=== PATIENT | female | born 1960 | race African-American/Black ===

== ENCOUNTER 2017-02-28 22:51 | Emergency (ER) | payer SELFPAY ==
[2017-02-28 23:27] LABS: ADD MAN DIFF? NO
[2017-02-28 23:31] LABS: BASO % 1 % (0-3); EOS # 0.1 x10^3/uL (0.0-0.7); EOS % 2 % (0-3); HEMATOCRIT 37.6 % (36.0-47.0); LYMPH # 2.5 x10^3/uL (1.0-4.8); LYMPH % 41 % (24-48); MEAN CORPUSCULAR HEMOGLOBIN 27 pg (25-35); MEAN CORPUSCULAR HGB CONC 32 g/dL (31-37); MEAN CORPUSCULAR VOLUME 86 fL (79-100); MONO # 0.5 x10^3/uL (0.0-1.1); MONO % 8 % (0-9); NEUT # 2.9 x10^3uL (1.8-7.7); NEUT % 48 % (31-73); PLATELET COUNT 168 x10^3/uL (140-400); RED BLOOD COUNT 4.36 x10^6/uL (3.50-5.40); RED CELL DISTRIBUTION WIDTH 15.1 % (11.5-14.5); WHITE BLOOD COUNT 6.1 x10^3/uL (4.0-11.0)
[2017-02-28] MEDS: IV NORMAL SALINE 1000ML BAG 1,000 ML IV (23:38)
[2017-02-28] MEDS: ONDANSETRON PF 4 MG/2 ML VIAL. IV (23:38)
[2017-02-28 23:50] LABS: ANION GAP 11 (6-14); BLOOD UREA NITROGEN 20 mg/dL (7-20); BUN/CREATININE RATIO 29 (6-20); CALCIUM 8.4 mg/dL (8.5-10.1); CARBON DIOXIDE 24 mmol/L (21-32); CHLORIDE 109 mmol/L (98-107); CREATININE 0.7 mg/dL (0.6-1.0); GLUCOSE 110 mg/dL (70-99); POTASSIUM 3.6 mmol/L (3.5-5.1); SODIUM 144 mmol/L (136-145)
[2017-02-28] MEDS: ACETAMINOPHEN 500 MG TABLET PO (23:50)
[2017-02-28 23:53] LABS: ALBUMIN 3.2 g/dL (3.4-5.0); ALBUMIN/GLOBULIN RATIO 0.8 (1.0-1.7); ALK PHOS 81 U/L (46-116); ALT (SGPT) 13 U/L (14-59); AST (SGOT) 13 U/L (15-37); LIPASE 450 U/L (73-393); TOTAL BILIRUBIN 0.1 mg/dL (0.2-1.0)
== END 2017-03-01 00:30 | disposition home or self-care (01) ==
LOC: ER 03-01 00:30
DX: R11.2 Nausea with vomiting, unspecified (principal); R19.7 Diarrhea, unspecified; F12.10 Cannabis abuse, uncomplicated; Z98.51 Tubal ligation status
CPT/HCPCS: 36415; 80053; 83690; 85025; 96361; 96374; 99284-25; J2405; J7030

== ENCOUNTER 2017-12-23 00:29 | Emergency (ER) | payer SELFPAY ==
[~2017-12-23] VITALS: Ht 162.6 cm; Wt 90.7 kg
[~2017-12-23 00:29] MED LIST: ONDA4TAB10 PO
[2017-12-23 01:53] LABS: BASO % 0 % (0-3); EOS # 0.1 x10^3/uL (0.0-0.7); EOS % 2 % (0-3); HEMATOCRIT 33.9 % (36.0-47.0); HEMOGLOBIN 11.5 g/dL (12.0-15.5); LYMPH # 2.2 x10^3/uL (1.0-4.8); LYMPH % 45 % (24-48); MEAN CORPUSCULAR HEMOGLOBIN 30 pg (25-35); MEAN CORPUSCULAR HGB CONC 34 g/dL (31-37); MEAN CORPUSCULAR VOLUME 87 fL (79-100); MONO # 0.4 x10^3/uL (0.0-1.1); MONO % 9 % (0-9); NEUT # 2.2 x10^3uL (1.8-7.7); NEUT % 44 % (31-73); PLATELET COUNT 166 x10^3/uL (140-400); RED CELL DISTRIBUTION WIDTH 15.1 % (11.5-14.5); WHITE BLOOD COUNT 4.9 x10^3/uL (4.0-11.0)
[2017-12-23 02:12] LABS: CALCIUM 8.8 mg/dL (8.5-10.1); CREATININE 0.7 mg/dL (0.6-1.0); GFR 103.6; POTASSIUM 3.8 mmol/L (3.5-5.1)
[2017-12-23 02:15] VITALS: BP 142/64
[2017-12-23 02:16] LABS: ALBUMIN 2.8 g/dL (3.4-5.0); ALBUMIN/GLOBULIN RATIO 0.9 (1.0-1.7); TOTAL BILIRUBIN 0.1 mg/dL (0.2-1.0)
[2017-12-23] MEDS: ASPIRIN CHEWABLE 81 MG TABLET. PO ONE (02:31)
--- NOTE | 2017-12-23 02:54 | PHYS DOC ---
Past Medical History Past Medical History: Diabetes-Type II, High Cholesterol, Hypertension Past Surgical History: , Tubal ligation Alcohol Use: None Drug Use: None Adult General Chief Complaint Chief Complaint: CHEST PAIN HPI HPI Patient is a 57 year old female is presenting with chest pain. Patient states really fact she's having upper chest even closer to the left shoulder pain and is been constant for 3 days although she does feel some dullness in her chest that does sort of come and go at times at rest it does not get worse with exertion it is not pleuritic he just seems to come at random. She does have shooting pain down both arms as well that has been constant for 3 days now. Addition she states both of her ankles were getting a little swollen and she is worried about that too no shortness of breath no previous cardiac history that she knows of. Currently symptoms are mild Review of Systems Review of Systems Constitutional: Denies fever or chills [] Eyes: Denies change in visual acuity, redness, or eye pain [] HENT: Denies nasal congestion or sore throat [] Cardiovascular: No additional information not addressed in HPI [] GI: Denies abdominal pain, nausea, vomiting, bloody stools or diarrhea [] : Denies dysuria or hematuria [] Neurologic: Denies headache, focal weakness or sensory changes [] Endocrine: Denies polyuria or polydipsia [] All other systems were reviewed and found to be within normal limits, except as documented in this note. Current Medications Current Medications Current Medications Medications (Trade) Dose Ordered Sig/[facility] Start Time Stop Time Status Last Admin Dose Admin Aspirin (Children'S Aspirin) 324 mg 1X ONCE 12/23/17 02:15 12/23/17 02:16 DC 12/23/17 02:31 324 MG Allergies Allergies Allergies Coded Allergies Type Severity Reaction Last Updated Verified No Known Drug Allergies 02/28/17 No Physical Exam Physical Exam Constitutional: Well developed, well nourished, no acute distress, non-toxic appearance. [] HENT: Normocephalic, atraumatic, bilateral external ears normal, oropharynx moist, no oral exudates, nose normal. [] Eyes: PERRLA, EOMI, conjunctiva normal, no discharge. [] Neck: Normal range of motion, no tenderness, supple, no stridor. [] Cardiovascular:Heart rate regular rhythm, no murmur [] Lungs & Thorax: Bilateral breath sounds clear to auscultation []there is reproducible tenderness over the anterior left shoulder and left clavicle area but no erythema or induration was seen Abdomen: Bowel sounds normal, soft, no tenderness, no masses, no pulsatile masses. [] Skin: Warm, dry, no erythema, no rash. [] Back: No tenderness, no CVA tenderness. [] Extremities: s, no cyanosis, no clubbing, ROM intact, trace edema. [] See above otherwise no tenderness elsewhere. Neurologic: Alert and oriented X 3, normal motor function, normal sensory function, no focal deficits noted. [] Psychologic: Affect normal, judgement normal, mood normal. [] Current Patient Data Vital Signs Vital Signs Date Time Temp Pulse Resp B/P (MAP) Pulse Ox O2 Delivery O2 Flow Rate FiO2 12/23/17 00:30 97.7 59 18 128/71 (90) 99 Room Air 97.7 Lab Values Laboratory Tests Test 12/23/17 00:49 White Blood Count 4.9 x10^3/uL (4.0-11.0) Red Blood Count 3.90 x10^6/uL (3.50-5.40) Hemoglobin 11.5 g/dL (12.0-15.5) L Hematocrit 33.9 % (36.0-47.0) L Mean Corpuscular Volume 87 fL (79-100) Mean Corpuscular Hemoglobin 30 pg (25-35) Mean Corpuscular Hemoglobin Concent 34 g/dL (31-37) Red Cell Distribution Width 15.1 % (11.5-14.5) H Platelet Count 166 x10^3/uL (140-400) Neutrophils (%) (Auto) 44 % (31-73) Lymphocytes (%) (Auto) 45 % (24-48) Monocytes (%) (Auto) 9 % (0-9) Eosinophils (%) (Auto) 2 % (0-3) Basophils (%) (Auto) 0 % (0-3) Neutrophils # (Auto) 2.2 x10^3uL (1.8-7.7) Lymphocytes # (Auto) 2.2 x10^3/uL (1.0-4.8) Monocytes # (Auto) 0.4 x10^3/uL (0.0-1.1) Eosinophils # (Auto) 0.1 x10^3/uL (0.0-0.7) Basophils # (Auto) 0.0 x10^3/uL (0.0-0.2) Sodium Level 145 mmol/L (136-145) Potassium Level 3.8 mmol/L (3.5-5.1) Chloride Level 110 mmol/L (98-107) H Carbon Dioxide Level 24 mmol/L (21-32) Anion Gap 11 (6-14) Blood Urea Nitrogen 15 mg/dL (7-20) Creatinine 0.7 mg/dL (0.6-1.0) Estimated GFR (Cockcroft-Gault) 103.6 BUN/Creatinine Ratio 21 (6-20) H Glucose Level 109 mg/dL (70-99) H Calcium Level 8.8 mg/dL (8.5-10.1) Total Bilirubin 0.1 mg/dL (0.2-1.0) L Aspartate Amino Transferase (AST) 12 U/L (15-37) L Alanine Aminotransferase (ALT) 16 U/L (14-59) Alkaline Phosphatase 68 U/L (46-116) Troponin I Quantitative < 0.017 ng/mL (0.000-0.055) Total Protein 6.0 g/dL (6.4-8.2) L Albumin 2.8 g/dL (3.4-5.0) L Albumin/Globulin Ratio 0.9 (1.0-1.7) L Laboratory Tests 12/23/17 00:49 Laboratory Tests 12/23/17 00:49 EKG EKG []EKG shows a normal sinus rhythm with a rate of 59 this is a normal EKG no ST changes were noted interpreted by me the time of encounter. Radiology/Procedures Radiology/Procedures [] Impressions: My interpretation chest x-ray was negative acute no definite pneumonia or pneumothorax was seen. Course & Med Decision Making Course & Med Decision Making Pertinent Labs and Imaging studies reviewed. (See chart for details) H1E0 a 1R2T0 Patient is a heart score of 4. This somewhat atypical story however there are some features that could potentially be atypical chest pain. Patient does have risk factors patient goes to [facility]. does not sound like pe or dissection. i recommended admission for rule out and risk stratification she says she has so much going on she can't stay I talked about the risks and benefits of staying or leaving including the risk of missed coronary artery disease which could ultimately be fatal. She understands this risk she says despite that she still cannot stay she has so much to do she just really want to get some blood test to make sure there is no heart attack I did tell her that we prove that there was no heart attack in the last few days. Overall her chest pain does some fairly atypical but I still recommended that she follow-up with her primary care doctor soon as possible and also given the follow-up phone number for the local mechanic foreman as well. She was instructed to come back to ER anytime should she want to be admitted for stress testing and /or for any new or worsening symptoms. She was of sound mind understood the risks and benefits we talked about she signed out AGAINST MEDICAL ADVICE. Dragon Disclaimer Dragon Disclaimer This electronic medical record was generated, in whole or in part, using a voice recognition dictation system. Departure Departure Impression: Primary Impression: Chest pain Disposition: 01 HOME, SELF-CARE Condition: STABLE Referrals: JUAN RAMON WILSON MD Patient Instructions: Chest Pain (Nonspecific), [id number] Additional Instructions: see your primary doctor or mechanic foreman as soon as possible CM DAVIS MD Dec 23, 2017 02:54
--- NOTE | 2017-12-23 06:13 | EKG ---
[facility] [address] [place] [address] Test Date: 2017-12-23 Test Time: 00:40:39 Pat Name: ROJAS PARSONS Department: Room: Gender: F Paraprofessional Aide: : 1960 Requested By: CM DAVIS Order Number: [id number] Reading MD: Kole Fox Measurements Intervals [place] Rate: 58 P: -2 MT: 172 QRS: 26 QRSD: 76 T: 38 QT: 424 QTc: 424 Interpretive Statements SINUS RHYTHM NORMAL ECG No previous ECG available for comparison Electronically Signed On 12-25-2017 10:29:08 CDT by Kole Fox
--- NOTE | 2017-12-23 08:06 | RAD ---
Single view of the chest. 12/23/2017 2:19 AM Indication: chest pain Comparison: None Findings: There is no focal consolidation. There is no pleural effusion or pneumothorax. The cardiomediastinal silhouette and pulmonary vasculature are within normal limits. No acute osseous abnormalities are seen. Impression: No evidence of acute cardiopulmonary process. Electronically signed by: Sebastian Callejas MD (12/23/2017 8:03 AM) [id number]
== END 2017-12-23 02:45 | disposition home or self-care (01) ==
LOC: ER 00:29
DX: R07.89 Other chest pain (principal); M25.512 Pain in left shoulder; E11.9 Type 2 diabetes mellitus without complications; E78.00 Pure hypercholesterolemia, unspecified; I10 Essential (primary) hypertension; Z98.890 Other specified postprocedural states; Z98.51 Tubal ligation status
CPT/HCPCS: 36415; 71045; 80053; 84484; 85025; 93005; 99285-25

== ENCOUNTER 2019-02-20 00:23 | Emergency (ER) | payer SELFPAY ==
[~2019-02-20] VITALS: Ht 162.6 cm; Wt 95.3 kg
--- NOTE | 2019-02-20 02:11 | PHYS DOC ---
Past Medical History Past Medical History: Diabetes-Type II, High Cholesterol, Hypertension Past Surgical History: , Tubal ligation Alcohol Use: None Drug Use: None Adult General Chief Complaint Chief Complaint: LOWER EXTREMITY SWELLING HPI HPI 58-year-old female presents to the emergency department with complaints of bilateral lower extremity pain 2 days. She has underlying history of diabetes, hypertension. She denies any coronary artery disease history. Patient denies any fever, nausea, vomiting, chest pain, shortness of breath. She's been eating primarily ramen noodles as she does not have groceries. Nothing makes her symptoms worse, nothing makes her symptoms better. Review of Systems Review of Systems Constitutional: Denies fever or chills [] Respiratory: Denies cough or shortness of breath [] Cardiovascular: No additional information not addressed in HPI [] GI: Denies abdominal pain, nausea, vomiting, bloody stools or diarrhea [] Musculoskeletal: Denies back pain or joint pain, + edema Neurologic: Denies headache, focal weakness or sensory changes [] Endocrine: Denies polyuria or polydipsia [] All other systems were reviewed and found to be within normal limits, except as documented in this note. Current Medications Current Medications Current Medications Medications (Trade) Dose Ordered Sig/[facility] Start Time Stop Time Status Last Admin Dose Admin Furosemide (Lasix) 40 mg 1X ONCE 02/20/19 02:30 02/20/19 02:31 DC 02/20/19 02:24 40 MG Potassium Chloride (Klor-Con) 40 meq 1X ONCE 02/20/19 03:45 02/20/19 03:46 DC 02/20/19 03:55 40 MEQ Allergies Allergies Allergies Coded Allergies Type Severity Reaction Last Updated Verified No Known Drug Allergies 02/28/17 No Physical Exam Physical Exam Constitutional: Well developed, well nourished, no acute distress, non-toxic appearance. [] HENT: Normocephalic, atraumatic, bilateral external ears normal, oropharynx moist, no oral exudates, nose normal. [] Eyes: PERRLA, EOMI, conjunctiva normal, no discharge. [] Cardiovascular:Heart rate regular rhythm, no murmur [] Lungs & Thorax: Bilateral breath sounds clear to auscultation [] Abdomen: Bowel sounds normal, soft, no tenderness, no masses, no pulsatile masses. [] Skin: Warm, dry, no erythema, no rash. [] Extremities: No tenderness, 1 +edema. [] Neurologic: Alert and oriented X 3, no focal deficits noted. [] Psychologic: Affect normal, judgement normal, mood normal. [] Current Patient Data Vital Signs Vital Signs Date Time Temp Pulse Resp B/P (MAP) Pulse Ox O2 Delivery O2 Flow Rate FiO2 02/20/19 01:27 98.1 64 16 180/84 (116) 98 Room Air 98.1 Lab Values Laboratory Tests Test 02/20/19 02:09 02/20/19 02:45 White Blood Count 5.8 x10^3/uL (4.0-11.0) Red Blood Count 3.55 x10^6/uL (3.50-5.40) Hemoglobin 10.1 g/dL (12.0-15.5) L Hematocrit 31.3 % (36.0-47.0) L Mean Corpuscular Volume 88 fL (79-100) Mean Corpuscular Hemoglobin 29 pg (25-35) Mean Corpuscular Hemoglobin Concent 32 g/dL (31-37) Red Cell Distribution Width 14.6 % (11.5-14.5) H Platelet Count 175 x10^3/uL (140-400) Neutrophils (%) (Auto) 51 % (31-73) Lymphocytes (%) (Auto) 39 % (24-48) Monocytes (%) (Auto) 8 % (0-9) Eosinophils (%) (Auto) 2 % (0-3) Basophils (%) (Auto) 1 % (0-3) Neutrophils # (Auto) 3.0 x10^3/uL (1.8-7.7) Lymphocytes # (Auto) 2.2 x10^3/uL (1.0-4.8) Monocytes # (Auto) 0.5 x10^3/uL (0.0-1.1) Eosinophils # (Auto) 0.1 x10^3/uL (0.0-0.7) Basophils # (Auto) 0.0 x10^3/uL (0.0-0.2) D-Dimer (Aretha) 0.94 ug/mlFEU (0.00-0.50) H Sodium Level 143 mmol/L (136-145) Potassium Level 3.1 mmol/L (3.5-5.1) L Chloride Level 109 mmol/L (98-107) H Carbon Dioxide Level 26 mmol/L (21-32) Anion Gap 8 (6-14) Blood Urea Nitrogen 9 mg/dL (7-20) Creatinine 0.6 mg/dL (0.6-1.0) Estimated GFR (Cockcroft-Gault) 123.4 BUN/Creatinine Ratio 15 (6-20) Glucose Level 113 mg/dL (70-99) H Calcium Level 8.4 mg/dL (8.5-10.1) L Total Bilirubin 0.3 mg/dL (0.2-1.0) Aspartate Amino Transferase (AST) 26 U/L (15-37) Alanine Aminotransferase (ALT) 24 U/L (14-59) Alkaline Phosphatase 81 U/L (46-116) Total Protein 6.2 g/dL (6.4-8.2) L Albumin 2.7 g/dL (3.4-5.0) L Albumin/Globulin Ratio 0.8 (1.0-1.7) L Urine Collection Type Unknown Urine Color Yellow Urine Clarity Clear Urine pH 6.5 Urine Specific [place] 1.010 Urine Protein Negative mg/dL (NEG-TRACE) Urine Glucose (UA) Negative mg/dL (NEG) Urine Ketones (Stick) Negative mg/dL (NEG) Urine Blood Negative (NEG) Urine Nitrite Negative (NEG) Urine Bilirubin Negative (NEG) Urine Urobilinogen Dipstick 0.2 mg/dL (0.2 mg/dL) Urine Leukocyte Esterase Negative (NEG) Urine RBC 0 /HPF (0-2) Urine WBC 0 /HPF (0-4) Urine Squamous Epithelial Cells Few /LPF Urine Bacteria 0 /HPF (0-FEW) Laboratory Tests 02/20/19 02:09 Laboratory Tests 02/20/19 02:09 EKG EKG [] Radiology/Procedures Radiology/Procedures [] Course & Med Decision Making Course & Med Decision Making Pertinent Labs and Imaging studies reviewed. (See chart for details) []58-year-old female presents to the emergency department with complaints of bilateral lower extremity pain 2 days. She has underlying history of diabetes, hypertension. She denies any coronary artery disease history. Patient denies any fever, nausea, vomiting, chest pain, shortness of breath. She's been eating primarily ramen noodles as she does not have groceries. Nothing makes her symptoms worse, nothing makes her symptoms better. Laboratory values reviewed, potassium 3.1, creatinine 0.6, d-dimer 0.9 US of lower ext pending (venous) - rule out DVT -----> negative for DVT Lasix 40mg po x 1 Recommend follow up with PCP as outpatient Dalila Disclaimer Dalila Disclaimer This electronic medical record was generated, in whole or in part, using a voice recognition dictation system. Departure Departure Impression: Primary Impression: Bilateral lower extremity edema Disposition: HOME, SELF-CARE Condition: STABLE Referrals: UNKNOWN PCP NAME (PCP) Patient Instructions: Peripheral Edema Additional Instructions: Recommend follow up with PCP 3 - 5 days Return to the ER with worsening symptoms, intractable pain, fever, altered mental status Tylenol/Motrin as needed for pain Take lasix as directed Potassium supplement every other day provided Scripts Potassium Chloride (POTASSIUM CHLORIDE) 8 Meq Capsule.er 1 CAP PO QODAY for 30 Days, #30 CAP 0 Refills Prov: MIAN REED MD 02/20/19 Furosemide (LASIX) 20 Mg Tablet 1 TAB PO DAILY for 30 Days, #30 TAB 0 Refills Prov: MIAN REED MD 02/20/19 MIAN REED MD Feb 20, 2019 02:10
[2019-02-20] MEDS ORDERED: FUROSEMIDE 40 MG TABLET. PO ONE (02:30)
[2019-02-20 02:33] LABS: BASO % 1 % (0-3); EOS # 0.1 x10^3/uL (0.0-0.7); EOS % 2 % (0-3); HEMATOCRIT 31.3 % (36.0-47.0); HEMOGLOBIN 10.1 g/dL (12.0-15.5); LYMPH # 2.2 x10^3/uL (1.0-4.8); LYMPH % 39 % (24-48); MEAN CORPUSCULAR HEMOGLOBIN 29 pg (25-35); MEAN CORPUSCULAR HGB CONC 32 g/dL (31-37); MEAN CORPUSCULAR VOLUME 88 fL (79-100); MONO # 0.5 x10^3/uL (0.0-1.1); MONO % 8 % (0-9); NEUT % 51 % (31-73); PLATELET COUNT 175 x10^3/uL (140-400); RED BLOOD COUNT 3.55 x10^6/uL (3.50-5.40); RED CELL DISTRIBUTION WIDTH 14.6 % (11.5-14.5); WHITE BLOOD COUNT 5.8 x10^3/uL (4.0-11.0)
[2019-02-20 02:41] LABS: CALCIUM 8.4 mg/dL (8.5-10.1); CREATININE 0.6 mg/dL (0.6-1.0); GFR 123.4; POTASSIUM 3.1 mmol/L (3.5-5.1)
[2019-02-20 02:47] LABS: ALBUMIN 2.7 g/dL (3.4-5.0); ALBUMIN/GLOBULIN RATIO 0.8 (1.0-1.7); TOTAL BILIRUBIN 0.3 mg/dL (0.2-1.0); TOTAL PROTEIN 6.2 g/dL (6.4-8.2)
[2019-02-20 02:51] LABS: BILIRUBIN,URINE NEGATIVE (NEG); CLARITY,URINE CLEAR; COLOR,URINE YELLOW; NITRITE,URINE NEGATIVE (NEG); PH,URINE 6.5; PROTEIN,URINE NEGATIVE (NEG-TRACE); UROBILINOGEN,URINE 0.2 mg/dL (0.2 mg/dL)
[2019-02-20 03:14] LABS: BACTERIA,URINE 0 /HPF (0-FEW); RBC,URINE 0 /HPF (0-2); WBC,URINE 0 /HPF (0-4)
[2019-02-20 03:15] LABS: SQUAMOUS EPITHELIAL CELL,UR FEW /LPF
[2019-02-20] MEDS ORDERED: POTASSIUM CHLORIDE 20 MEQ TABLET.ER. PO ONE (03:45)
[2019-02-20 04:30] VITALS: BP 147/76
[2019-02-20] MEDS ORDERED: FURO-69 PO (04:49)
[2019-02-20] MEDS ORDERED: POTA8CAP19 PO (04:49)
--- NOTE | 2019-02-20 05:11 | RAD ---
STUDY: VENOUS LOWER EXT BILATERAL INDICATION: Elevated d-dimer. Lower extremity swelling. TECHNIQUE: Color-flow and pulsed wave duplex ultrasound with compression of venous structures of the bilateral lower extremities. COMPARISON: None Available. FINDINGS: Duplex ultrasound with compression of the deep venous structures of the bilateral lower extremities from the common femoral vein through the popliteal vein is negative for DVT. The posterior tibial and peroneal veins are segmentally visualized and patent where seen. Normal venous waveforms and augmentation are noted throughout. Subcutaneous edema noted. IMPRESSION: 1. No deep venous thrombosis seen throughout either lower extremity. 2. Nonspecific subcutaneous edema bilaterally. Electronically signed by: MANFRED TRAORE MD (02/20/2019 5:08 AM) [id number]
== END 2019-02-20 05:07 | disposition home or self-care (01) ==
LOC: ER 00:23
DX: M79.662 Pain in left lower leg (principal); M79.661 Pain in right lower leg; R60.0 Localized edema; E11.9 Type 2 diabetes mellitus without complications; E78.00 Pure hypercholesterolemia, unspecified; I10 Essential (primary) hypertension; Z98.51 Tubal ligation status; Z98.890 Other specified postprocedural states; Z79.899 Other long term (current) drug therapy
CPT/HCPCS: 36415; 80053; 81001; 85025; 85379; 93970; 99285